=== PATIENT | male | born 1995 | race Caucasian/White ===

== ENCOUNTER 2017-09-30 17:14 | Inpatient (IN) | payer OTHER ==
[2017-09-30 19:24] LABS: ADD UMIC NO; UR ASCORBIC ACID NEGATIVE (NEGATIVE); UR BILIRUBIN (Dip) NEGATIVE (NEGATIVE); UR BLOOD (Dip) NEGATIVE (NEGATIVE); UR CLARITY CLEAR (CLEAR); UR COLOR YELLOW (YELLOW); UR GLUCOSE (Dip) NEGATIVE (NEGATIVE); UR KETONES (Dip) 1+ mg/dL (NEGATIVE); UR LEUKOCYTE ESTERASE (Dip) NEGATIVE Leu/ul (NEGATIVE); UR NITRITE (Dip) NEGATIVE (NEGATIVE); UR SPECIFIC GRAVITY (Dip) 1.017 (1.003-1.030); UR TOTAL PROTEIN (Dip) NEGATIVE (NEGATIVE); UR UROBILINOGEN (Dip) NEGATIVE (NEGATIVE)
[2017-09-30 19:35] LABS: ADD MAN DIFF? NO
[2017-09-30 19:43] LABS: WHITE BLOOD COUNT 13.9 10^3/ul (4.8-10.8)
[2017-09-30 19:43] LABS: BASOPHILS % 0.2 % (0.0-2.0); EOSINOPHILS % 0.2 % (0.0-7.0); HEMATOCRIT 43.6 % (42.0-52.0); HEMOGLOBIN 14.7 g/dl (14.0-18.0); LYMPHOCYTES # 1.1 10^3/ul (0.8-2.9); LYMPHOCYTES % 7.9 % (15.0-51.0); MEAN CORPUSCULAR HEMOGLOBIN 29.6 pg (29.0-33.0); MEAN CORPUSCULAR HGB CONC 33.7 g/dl (32.0-37.0); MEAN CORPUSCULAR VOLUME 87.9 fl (82.0-101.0); MEAN PLATELET VOLUME 10.6 fl (7.4-10.4); MONOCYTE # 1.1 10^3/ul (0.3-0.9); NEUTROPHIL # 11.5 10^3/ul (1.6-7.5); NEUTROPHILS % 83.2 % (39.0-77.0); PLATELET COUNT 196 10^3/UL (140-415); RED BLOOD COUNT 4.96 10^6/ul (4.70-6.10); RED CELL DISTRIBUTION WIDTH 12.5 % (11.5-14.5)
[2017-09-30 20:06] LABS: ALANINE AMINOTRANSFERASE 77 IU/L (13-69); ALBUMIN 4.4 g/dl (3.3-4.9); ALBUMIN/GLOBULIN RATIO 1.41; ALKALINE PHOSPHATASE 90 IU/L (42-121); ANION GAP 18 (8-16); ASPARTATE AMINO TRANSFERASE 60 IU/L (15-46); BILIRUBIN,INDIRECT 1.5 mg/dl (0-1.1); BILIRUBIN,TOTAL 1.5 mg/dl (0.2-1.3); BLOOD UREA NITROGEN 12 mg/dl (7-20); CALCIUM 10.2 mg/dl (8.4-10.2); CARBON DIOXIDE 27 mmol/L (21-31); CHLORIDE 102 mmol/L (97-110); CREATININE 0.88 mg/dl (0.61-1.24); GLUCOSE 102 mg/dl (70-220); LIPASE 35 U/L (23-300); POTASSIUM 4.7 mmol/L (3.5-5.1); SODIUM 142 mmol/L (135-144); TOTAL PROTEIN 7.5 g/dl (6.1-8.1)
[2017-09-30] MEDS: SOD CHLORIDE 0.9% 1,000 ML IV (20:44)
[2017-09-30] MEDS: ONDANSETRON 4 MG INJ IV (20:44)
[2017-09-30] MEDS: AMPICILLIN/SULB 3 GM/NS (PMX) 100 ML IVPB (20:44)
[2017-09-30] MEDS: morphine 4 MG/ML VIAL IV (20:45)
[2017-09-30] MEDS ORDERED: ACETAMINOPHEN 325 MG TAB PO ×2 (21:30→22:00)
[2017-09-30] MEDS ORDERED: ONDANSETRON 4 MG INJ IV ×2 (21:30→22:00)
[2017-09-30] MEDS ORDERED: BISACODYL (EC) 5 MG TAB PO (22:00)
[2017-09-30] MEDS ORDERED: NACL 0.9% 3 ML SYG IV (22:00)
[2017-09-30] MEDS ORDERED: DOCUSATE SODIUM 100 MG CAP PO (22:00)
[2017-09-30] MEDS: HYDROmorphONE 0.5 MG/0.5 ML SYG IV (23:28)
[2017-09-30] MEDS: PIPER-TAZO 3.375 GM IV (PMX) 100 ML IVPB (23:38)
[2017-10-01] MEDS: SOD CHLORIDE 0.9% 1,000 ML IV ×3 (00:25→14:03)
[2017-10-01] MEDS: HYDROmorphONE 0.5 MG/0.5 ML SYG IV ×2 (04:34→08:36)
[2017-10-01 05:33] LABS: ADD MAN DIFF? NO
[2017-10-01 05:38] LABS: WHITE BLOOD COUNT 9.6 10^3/ul (4.8-10.8)
[2017-10-01 05:38] LABS: BASOPHILS % 0.2 % (0.0-2.0); EOSINOPHILS # 0.1 10^3/ul (0.0-0.5); EOSINOPHILS % 0.5 % (0.0-7.0); HEMATOCRIT 41.4 % (42.0-52.0); HEMOGLOBIN 13.8 g/dl (14.0-18.0); LYMPHOCYTES # 1.2 10^3/ul (0.8-2.9); MEAN CORPUSCULAR HEMOGLOBIN 29.6 pg (29.0-33.0); MEAN CORPUSCULAR HGB CONC 33.3 g/dl (32.0-37.0); MEAN CORPUSCULAR VOLUME 88.7 fl (82.0-101.0); MONOCYTE # 0.9 10^3/ul (0.3-0.9); MONOCYTES % 9.3 % (0.0-11.0); NEUTROPHIL # 7.4 10^3/ul (1.6-7.5); NEUTROPHILS % 77.7 % (39.0-77.0); PLATELET COUNT 172 10^3/UL (140-415); RED BLOOD COUNT 4.67 10^6/ul (4.70-6.10); RED CELL DISTRIBUTION WIDTH 12.7 % (11.5-14.5)
[2017-10-01] MEDS: PIPER-TAZO 3.375 GM IV (PMX) 100 ML IVPB ×4 (05:45→20:46)
[2017-10-01 06:55] LABS: ALANINE AMINOTRANSFERASE 125 IU/L (13-69); ALBUMIN 3.8 g/dl (3.3-4.9); ALBUMIN/GLOBULIN RATIO 1.31; ALKALINE PHOSPHATASE 98 IU/L (42-121); ANION GAP 13 (8-16); ASPARTATE AMINO TRANSFERASE 108 IU/L (15-46); BILIRUBIN,INDIRECT 1.9 mg/dl (0-1.1); BILIRUBIN,TOTAL 1.9 mg/dl (0.2-1.3); BLOOD UREA NITROGEN 9 mg/dl (7-20); CALCIUM 9.1 mg/dl (8.4-10.2); CARBON DIOXIDE 27 mmol/L (21-31); CHLORIDE 105 mmol/L (97-110); CHOLESTEROL 114 mg/dl (100-200); GLUCOSE 93 mg/dl (70-220); HDL CHOLESTEROL 56 mg/dl (30-63); LDL CHOLESTEROL,CALCULATED 44 mg/dl; MAGNESIUM 1.7 mg/dl (1.7-2.5); POTASSIUM 4.3 mmol/L (3.5-5.1); SODIUM 141 mmol/L (135-144); TOTAL PROTEIN 6.7 g/dl (6.1-8.1); TRIGLYCERIDES 69 mg/dl (0-149)
[2017-10-01 08:37] LABS: HEMOGLOBIN A1C 4.8 % (0-5.9)
[2017-10-01 09:10] LABS: THYROID STIMULATING HORMONE 0.937 MIU/L (0.465-4.680)
[2017-10-01] MEDS ORDERED: ROPIVACAINE 0.5 % 30 ML VIAL (09:55)
[2017-10-01] MEDS ORDERED: HYDROmorphONE 1 MG/5 ML IV SYRINGE IV (10:30)
[2017-10-01] MEDS ORDERED: MIDAZOLAM 1 MG/ML 2 ML INJ ×2 (10:35→10:50)
[2017-10-01] MEDS ORDERED: FENTAnyl 50 MCG/ML VIAL (10:35)
[2017-10-01] MEDS ORDERED: LIDOCAINE 2% (SDV) 5 ML INJ (10:52)
[2017-10-01] MEDS ORDERED: DEXAMETHASONE 4 MG/ML 1 ML INJ (10:52)
[2017-10-01] MEDS ORDERED: ROCURONIUM 50 MG INJ (10:52)
[2017-10-01] MEDS ORDERED: PROPOFOL 20 ML (10:52)
[2017-10-01] MEDS ORDERED: ONDANSETRON 4 MG INJ (10:52)
[2017-10-01] MEDS ORDERED: PHENYLephrine (100 MCG/ML) 5ML SYG (10:59)
[2017-10-01] MEDS ORDERED: SUGAMMADEX SODIUM 200 MG/2 ML VIAL IV (11:31)
[2017-10-01] MEDS: BUPIVACAINE 0.25%/EPI (MDV) 50 ML VIAL INJ (11:40)
[2017-10-01] MEDS ORDERED: morphine 2 MG INJ IV (12:00)
[2017-10-01] MEDS: ONDANSETRON 4 MG INJ IV (12:22)
[2017-10-01] MEDS: HYDROmorphONE 1 MG/5 ML IV SYRINGE IV (12:23)
[2017-10-01] MEDS: OXYCODONE/ACETAMINOPHEN (5/325) TAB PO (16:03)
[2017-10-02] MEDS: PIPER-TAZO 3.375 GM IV (PMX) 100 ML IVPB ×5 (00:34→23:24)
[2017-10-02] MEDS: OXYCODONE/ACETAMINOPHEN (5/325) TAB PO ×3 (00:34→18:42)
[2017-10-02] MEDS: SOD CHLORIDE 0.9% 1,000 ML IV ×4 (00:35→23:24)
[2017-10-02 05:22] LABS: ADD MAN DIFF? NO
[2017-10-02 05:25] LABS: WHITE BLOOD COUNT 14.9 10^3/ul (4.8-10.8)
[2017-10-02 05:25] LABS: BASOPHILS % 0.1 % (0.0-2.0); HEMATOCRIT 41.2 % (42.0-52.0); HEMOGLOBIN 13.7 g/dl (14.0-18.0); LYMPHOCYTES # 0.8 10^3/ul (0.8-2.9); LYMPHOCYTES % 5.3 % (15.0-51.0); MEAN CORPUSCULAR HGB CONC 33.3 g/dl (32.0-37.0); MEAN CORPUSCULAR VOLUME 87.1 fl (82.0-101.0); MEAN PLATELET VOLUME 10.9 fl (7.4-10.4); MONOCYTE # 1.1 10^3/ul (0.3-0.9); MONOCYTES % 7.2 % (0.0-11.0); NEUTROPHIL # 12.9 10^3/ul (1.6-7.5); NEUTROPHILS % 86.9 % (39.0-77.0); PLATELET COUNT 210 10^3/UL (140-415); RED BLOOD COUNT 4.73 10^6/ul (4.70-6.10); RED CELL DISTRIBUTION WIDTH 12.5 % (11.5-14.5)
[2017-10-02 05:40] LABS: ALANINE AMINOTRANSFERASE 99 IU/L (13-69); ALBUMIN 3.7 g/dl (3.3-4.9); ALBUMIN/GLOBULIN RATIO 1.19; ALKALINE PHOSPHATASE 105 IU/L (42-121); ANION GAP 10 (8-16); ASPARTATE AMINO TRANSFERASE 58 IU/L (15-46); BILIRUBIN,INDIRECT 0.6 mg/dl (0-1.1); BILIRUBIN,TOTAL 0.6 mg/dl (0.2-1.3); BLOOD UREA NITROGEN 7 mg/dl (7-20); CALCIUM 9.2 mg/dl (8.4-10.2); CARBON DIOXIDE 29 mmol/L (21-31); CHLORIDE 107 mmol/L (97-110); CREATININE 0.83 mg/dl (0.61-1.24); GLUCOSE 136 mg/dl (70-220); POTASSIUM 4.3 mmol/L (3.5-5.1); SODIUM 142 mmol/L (135-144); TOTAL PROTEIN 6.8 g/dl (6.1-8.1)
[2017-10-03] MEDS: OXYCODONE/ACETAMINOPHEN (5/325) TAB PO ×2 (06:04→10:57)
[2017-10-03] MEDS: PIPER-TAZO 3.375 GM IV (PMX) 100 ML IVPB ×2 (06:04→11:08)
[2017-10-03] MEDS: SOD CHLORIDE 0.9% 1,000 ML IV (09:55)
== END 2017-10-03 16:15 | disposition home or self-care (01) | DRG 419 ==
LOC: MS1 21:14 → FTE 17:14
PROC: 0FT44ZZ Resection of Gallbladder, Percutaneous Endoscopic Approach (ICD-10-PCS; principal; 2017-10-01 10:28)
DX: K80.00 Calculus of gallbladder with acute cholecystitis without obstruction (principal)
CPT/HCPCS: 36415; 74181; 76705; 80053; 80061; 81003; 83036; 83690; 83735; 84100; 84443; 85025; 96374; 96375; 99285-25